=== PATIENT | female | born 2000 | race Hispanic/Latino ===

== ENCOUNTER 2021-02-18 14:58 | Outpatient (CLI) | payer OTHER ==
[2021-02-18 16:07] LABS: BHCG - Serum Negative (NEGATIVE); Pregs Control Background? CLEAR/WHITE (CLR/WHITE); Pregs Control Bar Appear? YES (CONTROL BAR)
[2021-02-19 03:28] LABS: SARS-CoV-2 PCR by NAA Not Detected (NotDetected)
== END 2021-02-18 14:59 | disposition home or self-care (01) ==
LOC: LABBT 14:58
PROVIDERS: ATTEND Otolaryngology Plastic Surgery within the Head & Neck
DX: Z01.812 Encounter for preprocedural laboratory examination (principal); J02.9 Acute pharyngitis, unspecified; R06.89 Other abnormalities of breathing; R06.83 Snoring; G47.9 Sleep disorder, unspecified; Z20.822 Contact with and (suspected) exposure to COVID-19
CPT/HCPCS: 84703; 85014; 87635; U0003; U0005

== ENCOUNTER 2021-02-23 05:47 | Day surgery (SDC) | payer OTHER ==
[2021-02-22 15:19] VITALS: BMI 24.4
[2021-02-23] MEDS ORDERED: Fentanyl 100 MCG/2 ML VIAL ONE (06:10)
[2021-02-23] MEDS ORDERED: Midazolam HCl 2 mg/2 ml Vial ONE (06:10)
[2021-02-23] MEDS ORDERED: HYDROmorphone 0.5 MG/0.5 ML SYRINGE ONE (06:10)
[2021-02-23] MEDS ORDERED: Ferric Subsulfate (ASTRINGYN) 8 GM VIAL ONE (06:27)
[2021-02-23] MEDS ORDERED: Lidocaine 1% PF 5 ML VIAL ONE (07:30)
[2021-02-23] MEDS ORDERED: Ondansetron PF 4 MG/2 ML Vial ONE (07:30)
[2021-02-23] MEDS ORDERED: PROPOFOL 200 MG/20 ML VIAL ONE (07:30)
[2021-02-23] MEDS ORDERED: Dexamethasone 20 MG/5 ML VIAL ONE (07:30)
[2021-02-23] MEDS ORDERED: Hydrocodone-Acetamin 15 ML UDCUP ONE (09:55)
== END 2021-02-23 10:15 | disposition home or self-care (01) ==
LOC: SDC 05:47
PROVIDERS: ATTEND Otolaryngology Plastic Surgery within the Head & Neck
PROC: 0CTPXZZ Resection of Tonsils, External Approach (ICD-10-PCS; principal; 2021-02-23)
PROC: 0CTQXZZ Resection of Adenoids, External Approach (ICD-10-PCS; principal; 2021-02-23)
DX: J35.03 Chronic tonsillitis and adenoiditis (principal); J02.9 Acute pharyngitis, unspecified; G47.9 Sleep disorder, unspecified
CPT/HCPCS: 88304; J1100; J1170; J2250; J2405; J2704; J3010